=== PATIENT | male | born 1985 | race Caucasian/White ===

== ENCOUNTER 2016-11-23 20:32 | Emergency (ER) | payer OTHER ==
[~2016-11-23] VITALS: Ht 180.3 cm; Wt 99.9 kg
[~2016-11-23 20:32] MED LIST: COGENTIN0.5 MG PO; COGENTIN1 MG PO; KEFLEX500 MG PO; NOHOMEMEDS; RISPERDAL1 MG PO; RISPERDAL3 MG PO; TYLENOL REGULA325 MG PO; ZOLPIDEM TARTRA10 MG PO
[2016-11-23 22:42] VITALS: BP 125/90
== END 2016-11-23 22:42 | disposition home or self-care (01) ==
LOC: EXP 20:32 → EME 20:32 → EXP 22:42
PROC: 3E0234Z Introduction of Serum, Toxoid and Vaccine into Muscle, Percutaneous Approach (ICD-10-PCS; principal; 2016-11-23)
DX: S00.81XA Abrasion of other part of head, initial encounter (principal); S80.212A Abrasion, left knee, initial encounter; S80.211A Abrasion, right knee, initial encounter; S09.90XA Unspecified injury of head, initial encounter; W01.198A Fall on same level from slipping, tripping and stumbling with subsequent striking against other object, initial encounter; Y93.01 Activity, walking, marching and hiking; Z23 Encounter for immunization; F20.9 Schizophrenia, unspecified; Z88.0 Allergy status to penicillin; F17.200 Nicotine dependence, unspecified, uncomplicated
CPT/HCPCS: 70450; 70486; 99281; 99283